=== PATIENT | male | born 1990 | race African-American/Black ===

== ENCOUNTER 2017-05-15 08:36 | Emergency (ER) | payer MEDICAID ==
[~2017-05-15] VITALS: Ht 175.3 cm; Wt 97.0 kg
[2017-05-15 11:24] VITALS: BP 110/78
== END 2017-05-15 11:27 | disposition home or self-care (01) ==
LOC: ER 08:53
DX: S90.32XA Contusion of left foot, initial encounter (principal); W25.XXXA Contact with sharp glass, initial encounter; Y93.01 Activity, walking, marching and hiking; Y92.000 Kitchen of unspecified non-institutional (private) residence as the place of occurrence of the external cause; Y99.8 Other external cause status
CPT/HCPCS: 73630; 99284; Z7610